=== PATIENT | male | born 1960 | race African-American/Black ===

== ENCOUNTER 2017-11-30 10:48 | Outpatient (REF) | payer MEDICAID, SELFPAY ==
[2017-11-30 13:50] LABS: Abs Immature Grans 0.03 k/cumm (0.0-0.09); Absolute Basophil Count 0.02 k/cumm (0.0-0.2); Absolute Eosinophil Count 0.12 k/cumm (0.0-0.7); Absolute Lymphocyte Count 2.91 k/cumm (1.2-3.4); Absolute Monocyte Count 0.65 k/cumm (0.11-0.7); Absolute Neutrophil Count 2.79 k/cumm (1.2-6.7); Basophils % 0.3; Eosinophils % 1.8; HCT 45.8 % (40.0-50.0); HGB 15.3 g/dL (13.5-17.5); Immature Grans % 0.5; Lymphocytes % 44.6; Mean Corp. HGB Concentration 33.4 g/dL (32.0-36.0); Mean Corpuscular Hemoglobin 34.2 pg (27.0-33.0); Mean Corpuscular Volume 102.2 fL (80-95); Neutrophils % 42.8; Platelet Count 180 x1000/uL (130-400); RBC 4.48 m/cumm (4.50-6.00); RBC Distribution Width 11.8 % (11.8-14.1); White Blood Cell Count 6.52 k/cumm (4.4-10.8)
[2017-11-30 14:20] LABS: ALT 43 U/L (12-78); AST 30 U/L (15-37); Albumin 4.1 g/dL (3.4-5.0); Alkaline Phosphatase 95 U/L (46-116); Anion Gap 12.8 mmol/L (3-11); BUN 11 mg/dL (7-18); CO2 22.2 mmol/L (21.0-32.0); CREATININE 1.26 mg/dL (0.70-1.30); Calcium 8.9 mg/dL (8.5-10.1); Chloride 104 mmol/L (98-107); Estimated GFR 58.99 (mL/min/1.73m2); Glucose 96 mg/dL (70-100); Potassium 4.4 mmol/L (3.5-5.1); Sodium 139 mmol/L (136-145); Total Protein 7.6 g/dL (6.4-8.2)
[2017-12-01 10:12] LABS: HIV-1/2 Ag & Ab Screen Negative (NEGAT)
[2017-12-01 10:13] LABS: HBs Antibody, Quant 522.5 mIU/mL; Hepatitis B Surface Ab Positive; Hepatitis B Surface Ag Negative (NEGAT)
[2017-12-01 11:35] LABS: Hepatitis C Ab w Rflx HCV PCR Reactive (NEGAT)
[2017-12-01 11:39] LABS: Hep A Total Ab w Rflx IgM Positive (NEGAT); Hep B Core Antibody Negative (NEGAT)
[2017-12-06 09:07] LABS: Hep A Antibody IgM Negative (NEGAT)
== END 2017-11-30 11:08 ==
LOC: NCHCN 10:48
PROVIDERS: Nurse Practitioner Family; PCP Nurse Practitioner Family; Visit Provider Nurse Practitioner Family
DX: B18.2 Chronic viral hepatitis C (principal); M54.5 Low back pain; M25.512 Pain in left shoulder
CPT/HCPCS: 80053; 86704; 86706; 86709; 86803; 87340; 87389; 85025; 87522

== ENCOUNTER 2017-12-27 11:22 | Outpatient (REF) | payer MEDICAID, SELFPAY ==
[2017-12-27 19:52] LABS: Vitamin B12 308 pg/mL (193-986)
[2017-12-30 11:37] LABS: ALT 29 U/L (7-55); ActiTest Grade A0-A1; ActiTest Interpretation no activity; Alpha-2-Macroglobulin 410 mg/dL (100 - 280); Apoliprotein A1 137 mg/dL (>=120); Bilirubin, Total 0.6 mg/dL (<=1.2); FibroTest Interpretation moderate fibrosis; FibroTest Score 0.58; FibroTest Stage F2; GGT 22 U/L (8 - 61); Haptoglobin 167 mg/dL (30 - 200)
== END 2017-12-27 11:42 ==
LOC: NCHCN 11:22
PROVIDERS: PCP Nurse Practitioner Family; Visit Provider Family Medicine
DX: D75.89 Other specified diseases of blood and blood-forming organs (principal); B18.2 Chronic viral hepatitis C
CPT/HCPCS: 82172; 82247; 82977; 83010; 83883; 84460; 82607

== ENCOUNTER 2018-03-29 15:35 | Outpatient (REF) | payer MEDICAID, SELFPAY ==
[2018-03-29 19:01] LABS: ALT 17 U/L (12-78); AST 15 U/L (15-37); Albumin 4.1 g/dL (3.4-5.0); Alkaline Phosphatase 77 U/L (46-116); Anion Gap 10.7 mmol/L (3-11); BUN 11 mg/dL (7-18); Bilirubin, Total 1.7 mg/dL (0.2-1.0); CO2 26.3 mmol/L (21.0-32.0); CREATININE 1.43 mg/dL (0.70-1.30); Calcium 9.5 mg/dL (8.5-10.1); Chloride 103 mmol/L (98-107); Estimated GFR 50.97 (mL/min/1.73m2); Glucose 77 mg/dL (70-100); Potassium 4.5 mmol/L (3.5-5.1); Sodium 140 mmol/L (136-145); Total Protein 7.7 g/dL (6.4-8.2)
[2018-03-29 19:56] LABS: Abs Immature Grans 0.02 k/cumm (0.0-0.09); Absolute Basophil Count 0.03 k/cumm (0.0-0.2); Absolute Eosinophil Count 0.08 k/cumm (0.0-0.7); Absolute Lymphocyte Count 3.48 k/cumm (1.2-3.4); Absolute Monocyte Count 0.58 k/cumm (0.11-0.7); Absolute Neutrophil Count 3.75 k/cumm (1.2-6.7); Basophils % 0.4; HCT 45.4 % (40.0-50.0); HGB 15.5 g/dL (13.5-17.5); Immature Grans % 0.3; Lymphocytes % 43.8; Mean Corp. HGB Concentration 34.1 g/dL (32.0-36.0); Mean Corpuscular Volume 102.5 fL (80-95); Mean Platelet Volume 11.9 fL (8.0-11.0); Monocytes % 7.3; Neutrophils % 47.2; Platelet Count 200 x1000/uL (130-400); RBC 4.43 m/cumm (4.50-6.00); RBC Distribution Width 11.9 % (11.8-14.1); White Blood Cell Count 7.94 k/cumm (4.4-10.8)
[2018-04-04 08:55] LABS: HCV RNA Detection Quantitative Detected (UNDECT)
== END 2018-03-29 15:55 ==
LOC: NCHCN 15:35
PROVIDERS: PCP Nurse Practitioner Family; Visit Provider Family Medicine
DX: B18.2 Chronic viral hepatitis C (principal)
CPT/HCPCS: 80053; 86803; 85025; 87522

== ENCOUNTER 2018-04-12 09:41 | Outpatient (REF) | payer MEDICAID, SELFPAY ==
[2018-04-12 19:29] LABS: ALT 17 U/L (12-78); AST 20 U/L (15-37); Albumin 3.9 g/dL (3.4-5.0); Alkaline Phosphatase 85 U/L (46-116); Anion Gap 8.3 mmol/L (3-11); BUN 15 mg/dL (7-18); Bilirubin, Total 0.6 mg/dL (0.2-1.0); CO2 27.7 mmol/L (21.0-32.0); CREATININE 1.43 mg/dL (0.70-1.30); Calcium 9.2 mg/dL (8.5-10.1); Chloride 105 mmol/L (98-107); Estimated GFR 50.97 (mL/min/1.73m2); Glucose 83 mg/dL (70-100); Potassium 4.2 mmol/L (3.5-5.1); Sodium 141 mmol/L (136-145); Total Protein 7.4 g/dL (6.4-8.2)
[2018-04-14 14:34] LABS: HCV RNA Detection Quantitative Undetected IU/mL (UNDECT)
== END 2018-04-12 10:01 ==
LOC: NCHCN 09:41
PROVIDERS: PCP Nurse Practitioner Family; Visit Provider Family Medicine
DX: B18.2 Chronic viral hepatitis C (principal); E80.6 Other disorders of bilirubin metabolism
CPT/HCPCS: 80053; 87522

== ENCOUNTER 2018-09-05 12:32 | Outpatient (REF) | payer MEDICAID, SELFPAY ==
[2018-09-05 19:44] LABS: HGB 15.1 g/dL (13.5-17.5); Mean Corp. HGB Concentration 35.1 g/dL (32.0-36.0); Mean Corpuscular Hemoglobin 34.8 pg (27.0-33.0); Mean Corpuscular Volume 99.1 fL (80-95); Mean Platelet Volume 11.6 fL (8.0-11.0); Platelet Count 204 x1000/uL (130-400); RBC 4.34 m/cumm (4.50-6.00); RBC Distribution Width 11.8 % (11.8-14.1); White Blood Cell Count 6.75 k/cumm (4.4-10.8)
[2018-09-05 20:16] LABS: ALT 19 U/L (12-78); AST 17 U/L (15-37); Albumin 4.3 g/dL (3.4-5.0); Alkaline Phosphatase 77 U/L (46-116); Anion Gap 9.7 mmol/L (3-11); BUN 13 mg/dL (7-18); CO2 27.3 mmol/L (21.0-32.0); CREATININE 1.23 mg/dL (0.70-1.30); Calcium 9.1 mg/dL (8.5-10.1); Chloride 104 mmol/L (98-107); Glucose 86 mg/dL (70-100); Potassium 4.3 mmol/L (3.5-5.1); Sodium 141 mmol/L (136-145); Total Protein 7.7 g/dL (6.4-8.2)
[2018-09-07 14:53] LABS: HCV RNA Detection Quantitative Undetected IU/mL (UNDECT)
== END 2018-09-05 12:52 ==
LOC: NCHCN 12:32
PROVIDERS: PCP Nurse Practitioner Family; Visit Provider Family Medicine
DX: B18.2 Chronic viral hepatitis C (principal)
CPT/HCPCS: 80053; 85027; 87522

== ENCOUNTER 2019-10-24 15:39 | Outpatient (REF) | payer MEDICAID, SELFPAY ==
[2019-10-27 01:18] LABS: SARS-CoV-2 RNA Undetected (Undetected); SARS-CoV-2 Specimen Source Nasopharynx
== END 2019-10-24 15:59 ==
LOC: NCHCN 15:39
PROVIDERS: PCP Nurse Practitioner Family; Visit Provider Nurse Practitioner Family
DX: Z11.59 Encounter for screening for other viral diseases (principal)
CPT/HCPCS: U0003

== ENCOUNTER 2019-11-17 15:29 | Outpatient (REF) | payer MEDICAID, SELFPAY ==
[2019-11-17 17:11] LABS: Calculated LDL 126 mg/dL (<100); Cholesterol 199 mg/dL (<200); HDL Cholesterol 44 mg/dL (40-60); Triglyceride 145 mg/dL (<150)
[2019-11-17 17:14] LABS: Hemoglobin A1C 4.9 % (<5.7)
[2019-11-17 22:57] LABS: PSA, Screening 0.6 ng/mL (0.0-3.5)
== END 2019-11-17 15:49 ==
LOC: NCHCN 15:29
PROVIDERS: PCP Nurse Practitioner Family; Visit Provider Family Medicine
DX: Z13.220 Encounter for screening for lipoid disorders (principal); Z13.1 Encounter for screening for diabetes mellitus; Z12.5 Encounter for screening for malignant neoplasm of prostate
CPT/HCPCS: 80061; 84153; 83036

== ENCOUNTER 2020-03-22 17:17 | Outpatient (REF) | payer MEDICAID, SELFPAY ==
[2020-03-25 11:30] LABS: COVID-19 RT-PCR UVMMC Result Negative (Negative)
== END 2020-03-22 17:37 ==
LOC: NCHCN 17:17
PROVIDERS: PCP Nurse Practitioner Family; Visit Provider Nurse Practitioner Family
DX: R51.9 Headache, unspecified (principal)
CPT/HCPCS: U0003

== ENCOUNTER 2020-09-20 18:48 | Outpatient (REF) | payer MEDICAID, SELFPAY ==
[2020-09-20 19:11] LABS: HCT 42.6 % (40.0-50.0); HGB 14.3 g/dL (13.5-17.5); MCH 34.8 pg (27.0-33.0); MCHC 33.6 % (32.0-36.0); MCV 103.6 fL (80-95); MPV 11.2 fL (8.0-11.0); Platelet Count 236 10^3/uL (130-400); RBC 4.11 10^6/uL (4.36-5.78); RDW 12.5 % (11.8-14.1); RDW-SD 47.4 fL; WBC 8.66 10^3/uL (4.4-10.8)
[2020-09-20 19:23] LABS: ALT 29 U/L (16-63); AST 19 U/L (15-37); Albumin 4.3 g/dL (3.4-5.0); Alkaline Phosphatase 65 U/L (46-116); Anion Gap 14.8 mmol/L (3-11); BUN 15 mg/dL (7-18); Bilirubin, Total 1.2 mg/dL (0.2-1.0); CO2 23.2 mmol/L (21.0-32.0); CREATININE 1.4 mg/dL (0.70-1.30); Calcium 9.8 mg/dL (8.5-10.1); Chloride 104 mmol/L (98-107); Estimated GFR 51.69 (mL/min/1.73m2); Glucose 100 mg/dL (74-106); Sodium 142 mmol/L (136-145); Total Protein 7.8 g/dL (6.4-8.2)
[2020-09-23 13:59] LABS: HIV-1/2 Ag & Ab Screen Negative (Negative)
[2020-09-24 06:51] LABS: HCV RNA Qualitative Undetected (Undetected)
== END 2020-09-20 18:49 | disposition home or self-care (01) ==
LOC: NCHCN 18:48
PROVIDERS: PCP Nurse Practitioner Family; Visit Provider Family Medicine
DX: Z00.00 Encounter for general adult medical examination without abnormal findings (principal); R74.8 Abnormal levels of other serum enzymes; N28.9 Disorder of kidney and ureter, unspecified; D64.9 Anemia, unspecified
CPT/HCPCS: 80053; 85027; 87389; 87522

== ENCOUNTER 2021-02-28 03:45 | Outpatient (CLI) | payer MEDICAID, SELFPAY ==
[2021-02-28] MEDS: Albuterol HFA 18 GM 200 PUFF INH IH (09:40)
[2021-02-28] MEDS: Inhaler, Assist Device 1 EACH MC (09:41)
--- NOTE | 2021-02-28 13:37 | W.PFT ---
Date of service: 02/28/21 Time of Service: 08:12 Pulmonary Function Test Result Requesting Provider Gordon Blankenship Indications: Mild dyspnea Interpretation Spirometry: There is no airflow limitation. Based on the appearance of the volume time curve, some obstruction may be present. There was no significant bronchodilator response Lung Volumes: Lung volumes are normal Diffusion Capacity: The diffusion is reduced Airway Pressure: Airways resistance is normal Impression Normal pulmonary functions testing, however there may be some obstructive disease based o nthe appearance of the flow volume loop and volume time curve. Clinical Correlation therefore is recommended.
== END 2021-02-28 03:46 | disposition home or self-care (01) ==
LOC: RT 03:45
PROVIDERS: PCP Nurse Practitioner Family; Visit Provider Family Medicine
DX: J45.40 Moderate persistent asthma, uncomplicated (principal); J98.4 Other disorders of lung; F17.210 Nicotine dependence, cigarettes, uncomplicated; R06.09 Other forms of dyspnea
CPT/HCPCS: 94060; 94726; 94729

== ENCOUNTER 2023-01-06 18:40 | Outpatient (REF) | payer MEDICAID, SELFPAY ==
[2023-01-06 19:49] LABS: HCT 43.1 % (40.0-50.0); HGB 14.7 g/dL (13.5-17.5); MCH 34.3 pg (27.0-33.0); MCHC 34.1 % (32.0-36.0); MCV 101 fL (80-95); MPV 10.6 fL (8.0-11.0); Platelet Count 225 10^3/uL (130-400); RBC 4.28 10^6/uL (4.36-5.78); RDW 11.5 % (11.8-14.1); RDW-SD 42.5 fL; WBC 8.94 10^3/uL (4.4-10.8)
[2023-01-06 20:05] LABS: Hemoglobin A1C 5.1 % (<5.7)
[2023-01-06 20:36] LABS: Anion Gap 13.2 mmol/L (3-11); BUN 19 mg/dL (7-18); CO2 23.8 mmol/L (21.0-32.0); CREATININE 1.8 mg/dL (0.70-1.30); Calcium 10.3 mg/dL (8.5-10.1); Calculated LDL 123 mg/dL (<100); Chloride 102 mmol/L (98-107); Cholesterol 191 mg/dL (<200); Estimated GFR 42.03 (mL/min/1.73m2); Glucose 109 mg/dL (74-106); HDL Cholesterol 53 mg/dL (40-60); Potassium 3.8 mmol/L (3.5-5.1); Sodium 139 mmol/L (136-145); Triglyceride 78 mg/dL (<150); Vitamin B12 235 pg/mL (193-986)
[2023-01-07 20:44] LABS: PSA, Screening 0.8 ng/mL (<=4.5)
[2023-01-08 09:31] LABS: Hepatitis B Surface Ag Negative (Negative)
[2023-01-08 09:44] LABS: HIV-1/2 Ag & Ab Screen Negative (Negative)
[2023-01-08 13:29] LABS: HCV RNA Qualitative Undetected (Undetected)
== END 2023-01-06 18:41 | disposition home or self-care (01) ==
LOC: NCHCN 18:40
PROVIDERS: PCP Nurse Practitioner Family; Visit Provider Family Medicine
DX: Z00.00 Encounter for general adult medical examination without abnormal findings (principal); N28.9 Disorder of kidney and ureter, unspecified; E78.5 Hyperlipidemia, unspecified; D75.89 Other specified diseases of blood and blood-forming organs
CPT/HCPCS: 80048; 80061; 84153; 85027; 87340; 87389; 87522; 82607; 83036

== ENCOUNTER 2024-09-07 10:32 | Outpatient (REF) | payer MEDICAID, SELFPAY ==
[2024-09-07 15:13] LABS: Abs Immature Grans 0.04 10^3/uL (0.0-0.06); Absolute Basophil Count 0.04 10^3/uL (0.0-0.2); Absolute Eosinophil Count 0.19 10^3/uL (0.0-0.7); Absolute Lymphocyte Count 2.84 10^3/uL (1.2-3.4); Absolute Monocyte Count 0.62 10^3/uL (0.1-0.8); Absolute Neutrophil Count 4.64 10^3/uL (1.2-6.7); Basophils % 0.5 %; Eosinophils % 2.3 %; HCT 40.5 % (40.0-50.0); HGB 13.8 g/dL (13.5-17.5); Immature Grans % 0.5 %; Lymphocytes % 33.9 %; MCH 34.3 pg (27.0-33.0); MCHC 34.1 % (32.0-36.0); MCV 101 fL (80-95); MPV 11.1 fL (8.0-11.0); Monocytes % 7.4 %; Neutrophils % 55.4 %; Platelet Count 206 10^3/uL (130-400); RBC 4.02 10^6/uL (4.36-5.78); RDW 11.3 % (11.8-14.1); RDW-SD 42.2 fL; WBC 8.37 10^3/uL (4.4-10.8)
[2024-09-07 15:46] LABS: COMMENT (LAB VIEW ONLY) 115.75 mg/dL; Microalb ug/mg Crea 24.8 ug/mg Cr
[2024-09-07 16:23] LABS: ALT 23 U/L (16-63); AST 18 U/L (15-37); Albumin 4.2 g/dL (3.4-5.0); Alkaline Phosphatase 89 U/L (46-116); Anion Gap 8.6 mmol/L (3-11); BUN 14 mg/dL (7-18); CO2 26.4 mmol/L (21.0-32.0); CREATININE 1.4 mg/dL (0.70-1.30); Calcium 9.5 mg/dL (8.5-10.1); Chloride 104 mmol/L (98-107); Estimated GFR 56.13 (mL/min/1.73m2); Glucose 87 mg/dL (74-106); Potassium 4.4 mmol/L (3.5-5.1); Sodium 139 mmol/L (136-145); Total Protein 7.3 g/dL (6.4-8.2); Vitamin B12 258 pg/mL (193-986)
[2024-09-07 22:56] LABS: PSA, Screening 0.8 ng/mL (<=4.5)
== END 2024-09-07 10:33 | disposition home or self-care (01) ==
LOC: NCHCN 10:32
PROVIDERS: Visit Provider Student in an Organized Health Care Education/Training Program
DX: N18.31 Chronic kidney disease, stage 3a (principal); Z13.1 Encounter for screening for diabetes mellitus; Z86.2 Personal history of diseases of the blood and blood-forming organs and certain disorders involving the immune mechanism; Z12.5 Encounter for screening for malignant neoplasm of prostate
CPT/HCPCS: 80053; 84153; 82043; 82570; 82607; 83036; 85025